=== PATIENT | male | born 2000 | race Caucasian/White ===

== ENCOUNTER 2022-04-26 21:12 | Emergency (ER) | payer SELFPAY ==
[~2022-04-26] VITALS: Ht 165.1 cm; Wt 60.0 kg
[2022-04-26] MEDS ORDERED: LORazepam 1 MG tablet PO ONE (21:40)
[2022-04-26 23:38] VITALS: BP 125/78
== END 2022-04-26 23:43 | disposition home or self-care (01) ==
LOC: ER 21:13
DX: R06.02 Shortness of breath (principal); Z79.899 Other long term (current) drug therapy
CPT/HCPCS: 70360; 71046; 99284